=== PATIENT | male | born 1945 | race African-American/Black ===

== ENCOUNTER 2018-04-23 19:06 | Emergency (ER) | payer MEDICARE ==
[~2018-04-23] VITALS: Ht 177.8 cm; Wt 95.0 kg
[2018-04-23 21:22] LABS: BASOPHILS % 0.5 % (0.0-2.0); EOSINOPHILS % 2.3 % (0.0-5.0); HEMATOCRIT. 29.9 % (42.0-52.0); HEMOGLOBIN. 9.9 g/dL (14.0-18.0); LYMPHOCYTES % 34.7 % (20.0-50.0); MEAN CORPUSCULAR HEMOGLOBIN 34.2 pg (28.0-32.0); MEAN CORPUSCULAR VOLUME 102.8 fL (80.0-94.0); MEAN PLATELET VOLUME 7.5 fl (7.4-10.4); NEUTROPHILS % 50.5 % (40.0-76.0); PLATELET 181 x1000/uL (130-400); RED BLOOD CELL COUNT 2.91 mill/uL (4.7-6.1); RED CELL DISTRIBUTION WIDTH 15.2 % (11.6-14.6)
[2018-04-23 21:28] LABS: CHLORIDE 106 mEq/L (98-107)
[2018-04-23 21:30] LABS: INR 1.2; PARTIAL THROMBOPLASTIN TIME 29.4 sec (23.4-31.0); PROTHROMBIN TIME 12.2 sec (9.1-11.1)
[2018-04-23 22:00] VITALS: BP 136/76
== END 2018-04-23 22:39 | disposition home or self-care (01) ==
LOC: ER 19:06
DX: T85.628A Displacement of other specified internal prosthetic devices, implants and grafts, initial encounter (principal); E11.9 Type 2 diabetes mellitus without complications; F17.200 Nicotine dependence, unspecified, uncomplicated; Y83.8 Other surgical procedures as the cause of abnormal reaction of the patient, or of later complication, without mention of misadventure at the time of the procedure; Y92.9 Unspecified place or not applicable
CPT/HCPCS: 36415; 80053; 85025; 85610; 85730; 99284; 99285

== ENCOUNTER 2018-04-24 07:48 | Emergency (ER) | payer MEDICARE, BC ==
[~2018-04-24] VITALS: Ht 177.8 cm; Wt 97.0 kg
[2018-04-24 11:00] VITALS: BP 145/80
== END 2018-04-24 11:18 | disposition home or self-care (01) ==
LOC: ER 07:48
DX: T85.628A Displacement of other specified internal prosthetic devices, implants and grafts, initial encounter (principal); Y82.8 Other medical devices associated with adverse incidents; Y92.9 Unspecified place or not applicable; E11.9 Type 2 diabetes mellitus without complications; F17.290 Nicotine dependence, other tobacco product, uncomplicated; Z85.038 Personal history of other malignant neoplasm of large intestine
CPT/HCPCS: 36569; 76937; 99285; C1725; 99284